=== PATIENT | female | born 1940 | race Caucasian/White ===

== ENCOUNTER → 2016-12-25 | Outpatient (CLI) | payer OTHER ==
[~2016-12-25] MED LIST: ACIPHEX20 MG PO; CALCITRIOL0.25 MCG PO; CYANOCOBAL1000 MCG/2 IM; DOXYCYCLINE HY100 MG PO; ESTRACE42.5 GM VG; IMODIUM A-D2 M2 PO; NIACIN 500 MG1 EACH PO; OMEGA-31000 M1 PO; RESTASIS 01 DROP/0.4 BOTH EYES; VITAMIN D31000 UNIT PO
== END | disposition home or self-care (01) ==
LOC: CDC 11:00
DX: N20.0 Calculus of kidney (principal)
CPT/HCPCS: 93000

== ENCOUNTER 2017-01-24 06:27 | Day surgery (SDC) | payer OTHER ==
[~2017-01-24] VITALS: Ht 167.6 cm; Wt 63.0 kg
[~2017-01-24 06:27] MED LIST changes: +PRESERVISION T1 EACH PO
[2017-01-24] MEDS ORDERED: FLOMAX0.4 MG PO (07:46)
[2017-01-24 07:51] VITALS: BP 131/67
[2017-01-24 12:39] VITALS: BP 111/83
[2017-01-24 12:50] VITALS: BP 117/60
[2017-01-24 13:25] VITALS: BP 114/56
== END 2017-01-24 13:35 | disposition home or self-care (01) ==
LOC: SDC 06:27
PROVIDERS: Urology
DX: N13.2 Hydronephrosis with renal and ureteral calculous obstruction (principal); I10 Essential (primary) hypertension; K21.0 Gastro-esophageal reflux disease with esophagitis; E53.8 Deficiency of other specified B group vitamins; Z72.0 Tobacco use; Z88.0 Allergy status to penicillin
CPT/HCPCS: 74000; 74420; 82365 90; C1769; C1876; C1894; J0690; J1100; J2405; J3010; J7050

== ENCOUNTER 2017-02-08 07:40 | Day surgery (SDC) | payer OTHER ==
[~2017-02-08] VITALS: Ht 167.6 cm; Wt 65.8 kg
[~2017-02-08 07:40] MED LIST changes: +FLOMAX0.4 MG PO
[2017-02-08 09:23] VITALS: BP 129/63
[2017-02-08 14:18] VITALS: BP 114/56
[2017-02-08 15:16] VITALS: BP 128/54
== END 2017-02-08 15:23 | disposition home or self-care (01) ==
LOC: SDC 07:40
DX: N20.2 Calculus of kidney with calculus of ureter (principal); D64.9 Anemia, unspecified; K21.0 Gastro-esophageal reflux disease with esophagitis; I10 Essential (primary) hypertension; M81.0 Age-related osteoporosis without current pathological fracture; K50.90 Crohn's disease, unspecified, without complications; F17.200 Nicotine dependence, unspecified, uncomplicated
CPT/HCPCS: 74000; C1769; C1876; C1894; J0131; J0690; J1100; J1580; J2175; J2405; J3010; J7050